=== PATIENT | female | born 1985 | race African-American/Black ===

== ENCOUNTER 2024-02-25 11:36 | Emergency (ER) | payer BC, SELFPAY ==
--- NOTE | ~2024-02-25 | XR_ITS ---
EXAMINATION: XR hand RT min 3V DATE: 02/25/2024 12:00 INDICATION: Right thumb pain post injury TECHNIQUE: Posteroanterior, oblique and lateral views of the right hand were obtained. COMPARISON: None. FINDINGS: Alignment is normal. No fracture. 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 Soft tissues are unremarkable. IMPRESSION: 1. No acute osseous abnormality. Reviewed, dictated and finalized at location A.
[2024-02-25 11:39] VITALS: BP 116/82; PULSE 94; RESP 16; TEMP 36.6; O2SAT 100
--- NOTE | 2024-02-25 13:25 | ED.UPPEXIN ---
HPI - Extremity Injury (Upper) General Chief Complaint: Extremity Injury, Upper Stated Complaint: hand injury Time Seen by Provider: 02/25/24 12:53 History of Present Illness HPI narrative: Patient is a 38-year-old female who presents ER with right thumb injury. She was opening the back of a semi trailer when a box fell out stretching her hand backwards. Sudden onset pain at the 1st MCP. No numbness or tingling. Has pain with range of motion. No additional injury or concern. Review of Systems Constitutional: Constitutional: Reports no additional constitutional complaints Musculoskeletal: Musculoskeletal: Denies back pain, Reports arthralgias and Denies joint swelling Integumentary/Breasts: Skin/Breast: Reports system reviewed and no additional complaints, except as docu Neurologic: Reports system reviewed and no additional complaints, except as documented PMFSH Past Medical History Medical History (Updated 02/25/24 @ 13:58 by Zafar Nascimento MD) Healthy female adult Exam Narrative: GENERAL: Well-appearing, well-nourished, and in no acute distress. HEAD: Normocephalic, atraumatic. ENT: Mucous membranes moist. HEART: Regular rate and rhythm. Normal peripheral pulses. EXTREMITIES: tender palpation right 1st MCP. Decreased range of motion due to pain. No other abnormality of the right hand. SKIN: Warm, dry, no rash. NEURO: Alert and oriented x3. PSYCH: Normal mood and affect. Course Course Emergency Course: Discussed imaging. Suspect thumb sprain. Educated on type of splint she should purchase for comfort. Patient has prescription for ibuprofen home does not require any additional anti-inflammatories. Vital Signs Vital signs: Vital Signs Temperature 97.9 F 02/25/24 11:39 Pulse Rate 94 02/25/24 11:39 Respiratory Rate 16 02/25/24 11:39 Blood Pressure 116/82 02/25/24 11:39 Pulse Oximetry 100 02/25/24 11:39 Temperature 97.9 F 02/25/24 11:39 Pulse Rate 94 02/25/24 11:39 Respiratory Rate 16 02/25/24 11:39 Blood Pressure 116/82 02/25/24 11:39 Pulse Oximetry 100 02/25/24 11:39 MDM - Extremity Injury (Upper) Imaging Data Radiologist's impression: ITS Impressions Hand X-Ray 02/25/24 12:20 IMPRESSION: 1. No acute osseous abnormality. Discharge Plan Discharge Clinical Impression: Finger sprain Patient Disposition: Home, Self-Care Condition: Stable Instructions: Finger Sprain (ED) Additional Instructions: Purchase a thumb support and wear it until your pain is improved. Return to the ER if you suffered any injury, or you have additional concerns. Prescriptions: New (DME) finger splint Misc See Rx Instructions .Route Qty: 1 0RF Rx Instructions: As directed Follow-up/Referrals: UNKNOWN,DOCTOR [Primary Care Provider] - 1 Week
[2024-02-25 14:05] VITALS: BP 119/75; PULSE 81; RESP 19; TEMP 36.8; O2SAT 100
== END 2024-02-25 14:06 | disposition home or self-care (01) ==
PROVIDERS: Emergency Provider Emergency Medicine
DX: S63.601A Unspecified sprain of right thumb, initial encounter (principal); W20.8XXA Other cause of strike by thrown, projected or falling object, initial encounter
CPT/HCPCS: 73130; 99283